=== PATIENT | male | born 1955 | race Caucasian/White ===

== ENCOUNTER 2017-02-09 13:12 | Emergency (ER) | payer OTHER ==
[~2017-02-09] VITALS: Wt 56.7 kg
--- NOTE | 2017-02-09 14:25 | RADRPT ---
PROCEDURE: US Scrotum. CLINICAL INDICATION: Pain TECHNIQUE: Multiple sonographic images of the scrotal region were obtained utilizing a linear arra y transducer with grayscale and color-flow and a Doppler imaging. The images were reviewed on a high -resolution PACS workstation. COMPARISON: No prior studies are available for comparison. FINDINGS: The right testicle is well visualized normal in size. There are dilated rete testis noted in the rig ht testicle. The right testicle measures 4.1 x 2.8 x 3.0 cm. There is normal color-flow. The right epididymis is enlarged measuring 2.6 x 1.6 cm. There are multiple cysts in the right epidi dymis, measuring up to 1.9 cm. There is a small right hydrocele. The left testicle is well visualized and has a normal echotexture. No focal areas abnormal echogenic ity are visualized. The left testicle measures 4.6 x 2.9 x 3.9 cm. There is normal color-flow. The l eft epididymis is visualized and is unremarkable in appearance. There is normal color-flow. The left epididymis measures 1.8 x 1.4 cm. There is a moderate left hydrocele. There is no evidence of varicocele. RPTAT: AA IMPRESSION: Enlarged right epididymis with multiple cystic structures measuring up to 1.9 cm. Small right hydroc lisandro. Dilated rete testis noted in the right testicle. Moderate left hydrocele. Normal Doppler flow is seen in the bilateral testicles and epididymis. .Masoud Ponce MD, MD Date Time Electronically viewed and signed by .Masoud Ponce MD, MD on 02/09/2017 14:24 .S/
[2017-02-09] MEDS ORDERED: HYDR-902 PO (15:15)
[2017-02-09] MEDS ORDERED: CIPR500T4 PO (15:15)
--- NOTE | 2017-02-09 15:18 | ERD ---
ER Documentation Chief Complaint Chief Complaint LEFT TESTICULAR PAIN X2 DAYS, MILD SWELLING PER PT HPI This is 61-year-old male here for right testicular pain for 3 days. He has some very mild swelling to the scrotum but no fever no dysuria no hematuria no back pain no trauma no penile discharge. Pain is constant dull ache in the right scrotum with no radiation. Says he has never had any epididymitis before any other testicular issues. ROS All systems reviewed and are negative except as per history of present illness. Medications Home Meds Active Scripts Hydrocodone/Acetaminophen ([place] 10-325 Tablet) 1 Each Tablet, 1 TAB PO Q6H Y for PAIN, #20 TAB Prov:LEKKOS,APOSTOLOS A. DO 02/09/17 Ciprofloxacin Hcl* (Ciprofloxacin Hcl*) 500 Mg Tablet, 500 MG PO BID for 21 Days , TAB Prov:LEKKOS,APOSTOLOS A. DO 02/09/17 Allergies Allergies: Coded Allergies: No Known Allergy (Unverified , 02/09/17) PMhx/Soc Medical and Surgical Hx: pt denies Medical Hx, pt denies Surgical Hx Hx Alcohol Use: No Hx Substance Use: No Hx Tobacco Use: No Smoking Status: Never smoker FmHx Family History: No coronary disease Physical Exam Vitals Vital Signs Date Time Temp Pulse Resp B/P Pulse Ox O2 Delivery O2 Flow Rate FiO2 02/09/17 13:16 97.5 72 18 179/83 98 Physical Exam C Const: , Right testicular epididymal tenderness with some mild erythema and swelling Head: Atraumatic, normocephalic Eyes: Normal Conjunctiva, PERRLA, EOMI, normal sclera, no nystagmus ENT: Normal External Ears, Nose and Mouth, moist mucus membranes. Neck: Full range of motion. No meningismus, no lymphadenopathy. Resp: Clear to auscultation bilaterally, no wheezing, rhonchi, rales Cardio: Regular rate and rhythm, no murmurs, S1 S2 present Abd: Soft, non tender x 4, non distended. Normal bowel sounds, no guarding or rebound, no pulsitile abdominal masses or bruits,Right testicular epididymal tenderness with some mild erythema and swelling, bilateral cremasteric intact Skin: No petechiae or rashes, no ecchymosis , no maculopapular rash Back: No midline or flank tenderness Ext: No cyanosis, or edema, FROM x 4, normal inspection, neurovascularly intact x 4 Neur: Awake and alert, STR 5/5 x 4, sensation intact x 4, no focal findings, cerebellum intact Psych: Normal Mood and Affect Procedures/MDM PROCEDURE: US Scrotum. CLINICAL INDICATION: Pain TECHNIQUE: Multiple sonographic images of the scrotal region were obtained utilizing a linear array transducer with grayscale and color-flow and a Doppler imaging. The images were reviewed on a high-resolution PACS workstation. COMPARISON: No prior studies are available for comparison. FINDINGS: The right testicle is well visualized normal in size. There are dilated rete testis noted in the right testicle. The right testicle measures 4.1 x 2.8 x 3.0 cm. There is normal color-flow. The right epididymis is enlarged measuring 2.6 x 1.6 cm. There are multiple cysts in the right epididymis, measuring up to 1.9 cm. There is a small right hydrocele. The left testicle is well visualized and has a normal echotexture. No focal areas abnormal echogenicity are visualized. The left testicle measures 4.6 x 2.9 x 3.9 cm. There is normal color-flow. The left epididymis is visualized and is unremarkable in appearance. There is normal color-flow. The left epididymis measures 1.8 x 1.4 cm. There is a moderate left hydrocele. There is no evidence of varicocele. RPTAT: AA IMPRESSION: Enlarged right epididymis with multiple cystic structures measuring up to 1.9 cm. Small right hydrocele. Dilated rete testis noted in the right testicle. Moderate left hydrocele. Normal Doppler flow is seen in the bilateral testicles and epididymis. .Masoud Ponce MD, MD Date Time Electronically viewed and signed by .Masoud Ponce MD, MD on 02/09/2017 14: 24 .S/ CC: MAAME WIN DO We will cover with Cipro 21 days Departure Diagnosis: Primary Impression: Epididymitis Condition: Stable Patient Instructions: Epididymitis Referrals: WALT MOORE MD, APOSTOLOS A. DO Feb 09, 2017 15:18
== END 2017-02-09 17:24 | disposition home or self-care (01) ==
LOC: E/R 13:12
DX: N45.1 Epididymitis (principal)
CPT/HCPCS: 76870

== ENCOUNTER 2018-06-14 12:35 | Emergency (ER) | payer OTHER ==
[~2018-06-14] VITALS: Ht 165.1 cm; Wt 54.5 kg
[~2018-06-14 12:35] MED LIST: CIPR500T4 PO; HYDR-3980 PO
[2018-06-14 12:43] VITALS: Ht 165.1 cm; Wt 54.5 kg
[2018-06-14] MEDS ORDERED: KETOROLAC 15 MG INJ IM STA (15:35)
[2018-06-14] MEDS ORDERED: ACET-141 PO (16:27)
[2018-06-14] MEDS ORDERED: IBUP-1561 PO (16:27)
[2018-06-14] MEDS ORDERED: METH750T93 PO (16:27)
--- NOTE | 2018-06-14 16:34 | ERD ---
ER Documentation Chief Complaint Chief Complaint c//o low back pain radiating to right leg x3 days. Denies injury HPI 63-year-old male presents for low back pain with radiation to the right leg times 3 days. He states that the pain is 6 out of 10. Describes the pain as sharp and radiating down to the right leg. Took 200 mg of Motrin at home without relief. Denies any injury. No chest pain or shortness of breath. Denies any recent back procedures. Denies history of cancer. Denies recent infection. ROS All systems reviewed and are negative except as per history of present illness. Medications Home Meds Active Scripts Methocarbamol* (Robaxin*) 750 Mg Tablet, 750 MG PO TID PRN for MUSCLE SPASMS, #30 TAB Prov:NAIMA FRANK DO 06/14/18 Ibuprofen* (Motrin*) 400 Mg Tab, 400 MG PO Q6H PRN for PAIN AND OR ELEVATED TEMP, #30 TAB Prov:NAIMA FRANK DO 06/14/18 Acetaminophen* (Acetaminophen*) 500 MG Extra Strength Tablet, 500 MG PO Q4H PRN for PAIN AND OR ELEVATED TEMP, #30 TAB Prov:NAIMA FRANK DO 06/14/18 Hydrocodone/Acetaminophen ([place] 10-325 Tablet) 1 Each Tablet, 1 TAB PO Q6H PRN for PAIN, #20 TAB Prov:MAAME WIN DO 02/09/17 Ciprofloxacin Hcl* (Ciprofloxacin Hcl*) 500 Mg Tablet, 500 MG PO BID for 21 Days, TAB Prov:MAAME WIN DO 02/09/17 Allergies Allergies: Coded Allergies: No Known Allergy (Unverified , 02/09/17) PMhx/Soc Medical and Surgical Hx: pt denies Medical Hx, pt denies Surgical Hx Hx Alcohol Use: No Hx Substance Use: No Hx Tobacco Use: No Smoking Status: Never smoker Physical Exam Vitals Vital Signs Date Temp Pulse Resp B/P (MAP) Pulse Ox O2 O2 Flow FiO2 Time Delivery Rate 06/14/18 97.2 72 20 154/89 96 12:43 (110) Physical Exam Const: No acute distress Neck: Full range of motion. No meningismus. no midline tenderness Resp: Clear to auscultation bilaterally Cardio: Regular rate and rhythm, no murmurs, bilateral radial and dorsalis pedis pulses intact and equal Abd: Soft, non tender, non distended. Normal bowel sounds, no abdominal bruit noted Skin: No petechiae or rashes Back: no point tenderness Ext: No cyanosis, or edema, 5/5 muscle strength bilateral upper and lower extremities Neur: Awake and alert, bilateral upper and lower extremity sensation intact Psych: Normal Mood and Affect Results 24 hrs Current Medications Medications Dose Sig/Edin Start Time Status Last (Trade) Ordered Route PRN Stop Time Admin Dose Reason Admin Ketorolac 15 mg ONCE STAT 06/14/18 DC 06/14/18 Tromethamine IM 15:35 06/14/18 15:41 (Toradol) 15:36 Procedures/MDM Medical Decision Making: Differential diagnosis includes but not limited to muscle strain, ligamentous sprain, epidural abscess, osteomyelitis, osteoarthritis, herniated disc, compression fracture, aortic aneurysm, kidney stone, pyelonephritis, pancreatitis. Patient appeared well on physical examination. Nontoxic appearing. Patient appeared well on physical examination. Nontoxic appearing. No recent back procedure, therefore low suspicion for epidural abscess No recent infection, therefore low suspicion for osteomyelitis No trauma, therefore low suspicion for fracture No chest pain, abdominal pain and no pulse deficits noted, therefore low suspicion for aortic dissection or pancreatitis No flank pain or fever to suggest pyelonephritis or kidney stone Imaging: Lumbar spine x-ray shows mild degenerative disc disease mostly at L5-S1 ED course: Patient was given Toradol. Symptoms improved with treatment. Prescription(s): Patient given prescription for supportive medication(s). Advised to follow with primary care physician for possible referral for physical therapy. Patient advised to follow up with PCP in 1-2 days. Patient advised to return to ED for new or worsening symptoms. Patient stable on discharge from the ED. Disclaimer: Inadvertent spelling and grammatical errors are likely due to EHR/dictation software use and do not reflect on the overall quality of patient care. Also, please note that the electronic time recorded on this note does not necessarily reflect the actual time of the patient encounter. Departure Diagnosis: Primary Impression: Back pain Back pain location: low back pain Chronicity: acute Back pain laterality: right Sciatica presence: with sciatica Sciatica laterality: sciatica of right side Qualified Codes: M54.41 - Lumbago with sciatica, right side Condition: Fair Patient Instructions: Back Pain (Acute Or Chronic) Additional Instructions: Call your primary care doctor TOMORROW for an appointment during the next 1-2 days.See the doctor sooner or return here if your condition worsens before your appointment time. NAIMA FRANK DO Jun 14, 2018 16:34
[2018-06-14 17:00] VITALS: BP 142/74; PULSE 60; RESP 16
== END 2018-06-14 17:05 | disposition home or self-care (01) ==
LOC: FTE 12:35
DX: M54.41 Lumbago with sciatica, right side (principal)
CPT/HCPCS: 72100; 96372; J1885; Z7502

== ENCOUNTER 2018-10-21 09:18 | Emergency (ER) | payer OTHER ==
[~2018-10-21] VITALS: Ht 162.6 cm; Wt 54.0 kg
[~2018-10-21 09:18] MED LIST changes: +ACET-141 PO; +ALBU18HF INHALATION; +HYDR25TA6 PO; +IBUP-1561 PO; +LOSA50TA14 PO; +METH750T93 PO
[2018-10-21 09:21] VITALS: Ht 162.6 cm; Wt 54.0 kg
[2018-10-21] MEDS ORDERED: hydrALAzine 20 MG INJ IV PRN (11:00)
--- NOTE | 2018-10-21 11:41 | CONS ---
DATE OF ADMISSION: 10/21/2018 DATE OF CONSULTATION: 10/21/2018 TYPE OF CONSULTATION: Cardiology. REASON FOR CONSULTATION: Shortness of breath, hypertension, congestive heart failure, rule out acute coronary syndrome. REQUESTING PHYSICIAN: Yoseph Whyte MD, from the Emergency Department. HISTORY OF PRESENT ILLNESS: Mr. Watkins is a very pleasant 63-year-old male with history of COPD, who presented with 2 to 3 days of dyspnea on exertion, nonproductive cough and subjective fever to 1 00.5, 2 to 3 days prior. The patient denied associated chest pain, dizziness, palpitations. The willy van presented to the Emergency Department after blood pressure being controlled all night, temperatu re 97.8, blood pressure 178/78, pulse 64, respiratory rate 18, satting 99%. The patient's labs showe d white blood cell count 8.1, hemoglobin 14.5, platelet count of 262. Sodium 142, potassium 4.0, cre atinine 0.56, BUN 8, troponin negative. BNP of 426. The patient underwent a chest x-ray revealing c alcified thoracic aortic arch and chronic lung changes. The patient's electrocardiogram was sinus rh ythm, rate of 60, normal axis, normal intervals, PA-C, lateral T-wave inversion. The patient at this time remains in the Emergency Department just arriving. PAST MEDICAL HISTORY: As above in HPI. MEDICATIONS PRIOR TO ADMIT: 1. Ciprofloxacin 500 mg p.o. b.i.d. 2. Albuterol. 3. Methocarbamol. 4. Tylenol. 5. Shell. 6. Ibuprofen. 7. Hydrochlorothiazide. ALLERGIES: NO KNOWN DRUG ALLERGIES. SOCIAL HISTORY: Positive tobacco, half pack per day. Social ETOH. No illicit drug use. FAMILY HISTORY: No sudden cardiac or early CAD. REVIEW OF SYSTEMS: As above in HPI. CONSTITUTIONAL: Positive fevers, chills. PULMONARY: Positive shortness of breath. CARDIOVASCULAR: No current chest pain. GASTROINTESTINAL: No vomiting. GENITOURINARY: No hematuria. MUSCULOSKELETAL: Degenerative joint disease. PSYCHIATRIC: The patient has depression. NEUROLOGIC: No documented history of CVA. ENDOCRINE: No documented history of diabetes mellitus. PHYSICAL EXAMINATION: VITAL SIGNS: Temperature 97.8, blood pressure 178/78, pulse 64, satting 99%. GENERAL: The patient is alert, awake, complaining of shortness of breath. NECK: JVP approximately 9 cm of water. CHEST: Decreased breath sounds at bases bilaterally. HEART: Regular rate and rhythm. Normal S1, increased S2, I/ systolic murmur. Nondisplaced PMI. ABDOMEN: Positive bowel sounds, soft. EXTREMITIES: No significant pitting edema, 1+ pulses, posterior tibial. LABORATORIES: As above in HPI. No further labs for my review at this time. IMAGING STUDIES: As above in HPI. No further imaging studies for my review at this time. ECG: As above in HPI. No further electrocardiograms for my review at this time. IMPRESSION: 1. Hypertension, uncontrolled. 2. Shortness of breath, assess congestive heart failure, rule out acute coronary syndrome. 3. Cough, nonproductive. Assess for upper respiratory infection. 4. Chronic obstructive pulmonary disease. 5. Tobacco dependence. 6. Increased BNP, assess for congestive heart failure. RECOMMENDATIONS: 1. At this time, would admit patient to telemetry monitoring to follow rhythm and rate control close ly. 2. Would start patient on antihypertensives to improve overall systolic blood pressure control. I w ill start this time with ARB. 3. Complete the patient's rule out for myocardial infarction should the patient's shortness breath i s not due to an acute coronary syndrome, acute markers such as an acute myocardial infarction. 4. Check a 2D echo to further assess patient's ejection fraction, wall motion, rule out any major va lve abnormalities. 5. We will check a fasting lipid panel for general risk stratification and initiate lipid-lowering m edication as necessary. 6. We will initiate patient on bronchodilators and consider antibiotic therapy. 7. We will follow up all culture data. 8. Will consider stress testing this patient if rules out for myocardial infarction. Thank you for allowing me to take part in the care of this patient. I will continue to follow along very closely with you with further recommendations to be made as the patient progresses through his [facility] clinical course. Dictated By: ALEENA WISEMAN/JOSEILNE Conf#: [id number] DID#: [id number] CC: YOSEPH WHYTE MD;*EndCC*
--- NOTE | 2018-10-21 11:49 | ERD ---
ER Documentation Chief Complaint Chief Complaint sob x 1 week , bp high @ home HPI 63-year-old gentleman history of smoking who presents to the emergency room with elevated blood pressure and shortness of breath on and off for 1 week. The patient describes intermittent episodes of shortness of breath. He denies any pressure or diaphoresis or exertional symptoms, no PND orthopnea or lower extremity swelling. This shortness of breath episodes last several minutes and are completely resolved without significant intervention. He was noted to have elevated blood pressure. He started taking unknown blood pressure medication fr om unknown individual. ROS All systems reviewed and are negative except as per history of present illness. Medications Home Meds Active Scripts Losartan Potassium* (Losartan Potassium*) 50 Mg Tablet, 50 MG PO DAILY for 30 Days, TAB Prov:ELICEO HUGHES MD 10/21/18 Albuterol Sulfate* (Ventolin HFA*) 18 Gm Hfa.aer.ad, 2 PUFF INHALATION Q4H, #1 INHALER Prov:ELICEO HUGHES MD 10/21/18 Hydrochlorothiazide* (Hydrochlorothiazide*) 25 Mg Tab, 25 MG PO DAILY, #30 TAB Prov:ELICEO HUGHES MD 10/21/18 Methocarbamol* (Robaxin*) 750 Mg Tablet, 750 MG PO TID PRN for MUSCLE SPASMS, #30 TAB Prov:NAIMA FRANK DO 06/14/18 Ibuprofen* (Motrin*) 400 Mg Tab, 400 MG PO Q6H PRN for PAIN AND OR ELEVATED TEMP, #30 TAB Prov:NAIMA FRANK DO 06/14/18 Acetaminophen* (Acetaminophen*) 500 MG Extra Strength Tablet, 500 MG PO Q4H PRN for PAIN AND OR ELEVATED TEMP, #30 TAB Prov:NAIMA FRANK DO 06/14/18 Hydrocodone/Acetaminophen ([place] 10-325 Tablet) 1 Each Tablet, 1 TAB PO Q6H PRN for PAIN, #20 TAB Prov:MAAME WIN DO 02/09/17 Ciprofloxacin Hcl* (Ciprofloxacin Hcl*) 500 Mg Tablet, 500 MG PO BID for 21 Days, TAB Prov:MAAME WIN DO 02/09/17 Allergies Allergies: Coded Allergies: No Known Allergy (Unverified , 02/09/17) PMhx/Soc Medical and Surgical Hx: pt denies Medical Hx, pt denies Surgical Hx Hx Alcohol Use: Yes Hx Substance Use: No Hx Tobacco Use: Yes Smoking Status: Current every day smoker FmHx Family History: No diabetes Physical Exam Vitals Vital Signs Date Temp Pulse Resp B/P (MAP) Pulse Ox O2 O2 Flow FiO2 Time Delivery Rate 10/21/18 Nasal 2 10:00 Cannula 10/21/18 97.8 64 18 178/78 99 09:21 (111) Physical Exam General: Well developed, well nourished, no acute distress Head: Normocephalic, atraumatic. Eyes: Pupils equally reactive, EOM intact ENT: Moist mucous membranes Neck: Supple, no lymphadenopathy Respiratory: Lungs clear bilaterally, no distress Cardiovascular: RRR, no murmurs, rubs, or gallops Abdominal: Soft, non-tender, non-distended, no peritoneal signs : Deferred MSK: No edema, no unilateral swelling, 5/5 strength Neurologic: Alert and oriented, moving all extremities, normal speech, no focal weakness, no cerebellar signs Skin: No rash Psych: Normal mood Result Diagram: 10/21/18 0950 10/21/18 0950 Results 24 hrs Laboratory Tests Test 10/21/18 09:50 White Blood Count 8.1 10^3/ul Red Blood Count 4.83 10^6/ul Hemoglobin 14.5 g/dl Hematocrit 44.2 % Mean Corpuscular Volume 91.5 fl Mean Corpuscular Hemoglobin 30.0 pg Mean Corpuscular Hemoglobin Concent 32.8 g/dl Red Cell Distribution Width 12.1 % Platelet Count 262 10^3/UL Mean Platelet Volume 9.9 fl Immature Granulocytes % 0.400 % Neutrophils % 77.9 % Lymphocytes % 12.4 % Monocytes % 8.1 % Eosinophils % 1.1 % Basophils % 0.1 % Nucleated Red Blood Cells % 0.0 /100WBC Immature Granulocytes # 0.030 10^3/ul Neutrophils # 6.3 10^3/ul Lymphocytes # 1.0 10^3/ul Monocytes # 0.7 10^3/ul Eosinophils # 0.1 10^3/ul Basophils # 0.0 10^3/ul Nucleated Red Blood Cells # 0.0 10^3/ul Sodium Level 142 mmol/L Potassium Level 4.0 mmol/L Chloride Level 102 mmol/L Carbon Dioxide Level 35 mmol/L Anion Gap 5 Blood Urea Nitrogen 8 mg/dl Creatinine 0.56 mg/dl Est Glomerular Filtrat Rate mL/min > 60 mL/min Glucose Level 83 mg/dl Calcium Level 10.1 mg/dl Troponin I < 0.012 ng/ml B-Type Natriuretic Peptide 426 PG/ML Current Medications Medications Dose Sig/Edin Start Time Status Last (Trade) Ordered Route PRN Stop Time Admin Dose Reason Admin Losartan 25 mg BID PO 10/21/18 Potassium 21:00 (Cozaar) Hydralazine 10 mg Q4H PRN 10/21/18 HCl IV SBP>170 11:00 (Apresoline) Procedures/MDM EKG, MONITORS, & DIAGNOSTIC IMAGING: EKG: I reviewed and interpreted a 12-lead EKG. Rhythm: Normal sinus rhythm ST Changes: No contiguous ST segment elevations T waves: No contiguous T wave inversions Impression: No evidence of acute cardiac ischemia Chest x-ray: I reviewed and interpreted a 1 view of the chest Mediastinum: No enlargement Cardiac silhouette: No cardiomegaly Airspace: Hyperinflation. Bones: No evidence of fracture LAB INTERPRETATION: I reviewed the laboratory testing and it shows negative troponin, indeterminate BNP MEDICAL DECISION MAKING: The patient has transient episodes of shortness of breath that are nonexertional and nonspecific likely secondary to his smoking. CHF needs to be considered. Low concern for acute coronary syndrome. Patient's blood pressure is elevated likely prolonged. He is taking someone else's blood pressure medication not prescribed by physician. Patient is in no distress and has no active symptoms currently. ER COURSE: * The patient's presentation is consistent with asymptomatic hypertensive urgency, shortness of breath is possibly secondary to underlying smoking, COPD exacerbation. Less likely CHF. BNP is indeterminate. No evidence of pulmonary edema on chest x-ray. Patient is resting comfortably and asymptomatic. * Store Sales Consultant Dr. Fernandez to the bedside. He has divided the patient and agrees with discharge. He would like to start losartan, prescription provided. He will follow-up with the patient on an outpatient basis. CONSULTATION: Cardiology as documented above DISPOSITION PLAN: The patient does not have an identifiable emergent medical condition that warrants inpatient hospitalization at this time. The patient is deemed safe for discharge with outpatient follow-up. We discussed follow up with the patient's primary care doctor within 24 to 48 hours as needed. We also discussed return to the emergency room for worsening symptoms or worsening condition. Outpatient referral: Cardiology Discharge Medications: Losartan, Ventolin Departure Diagnosis: Primary Impression: Essential hypertension Additional Impression: Shortness of breath Condition: Stable Patient Instructions: Hypertension, New (Begin Treatment) Referrals: ALEENA FERNANDEZ [facility] YOU HAVE RECEIVED A MEDICAL SCREENING EXAM AND THE RESULTS INDICATE THAT YOU DO NOT HAVE A CONDITION THAT REQUIRES URGENT TREATMENT IN THE EMERGENCY DEPARTMENT. FURTHER EVALUATION AND TREATMENT OF YOUR CONDITION CAN WAIT UNTIL YOU ARE SEEN IN YOUR DOCTORS OFFICE WITHIN THE NEXT 1-2 DAYS. IT IS YOUR RESPONSIBILITY TO MAKE AN APPOINTMENT FOR FOLOW-UP CARE. IF YOU HAVE A PRIMARY DOCTOR --you should call your primary doctor and schedule an appointment IF YOU DO NOT HAVE A PRIMARY DOCTOR YOU CAN CALL OUR PHYSICIAN REFERRAL HOTLINE AT IF YOU CAN NOT AFFORD TO SEE A PHYSICIAN YOU CAN CHOSE FROM THE FOLLOWING [facility] [address] [facility]. [facility] [address] [facility] [address] [facility] [address] [facility] [address] [facility]. [facility] [address] [facility]. [facility] YOU HAVE RECEIVED A MEDICAL SCREENING EXAM AND THE RESULTS INDICATE THAT YOU DO NOT HAVE A CONDITION THAT REQUIRES URGENT TREATMENT IN THE EMERGENCY DEPARTMENT. FURTHER EVALUATION AND TREATMENT OF YOUR CONDITION CAN WAIT UNTIL YOU ARE SEEN IN YOUR DOCTORS OFFICE WITHIN THE NEXT 1-2 DAYS. IT IS YOUR RESPONSIBILITY TO MAKE AN APPOINTMENT FOR FOLOW-UP CARE. IF YOU HAVE A PRIMARY DOCTOR --you should call your primary doctor and schedule and appointment IF YOU DO NOT HAVE A PRIMARY DOCTOR YOU CAN CALL OUR PHYSICIAN REFERRAL HOTLINE AT . IF YOU CAN NOT AFFORD TO SEE A PHYSICIAN YOU CAN CHOSE FROM THE FOLLOWING [facility] INSTITUTIONS: [facility] [address] [place] [address] [facility] [address] [place] [address] [address] Additional Instructions: Call your primary care doctor TOMORROW for an appointment during the next 1 WEEK.Tell the administrative secretary that you were referred from this facility.See the doctor sooner or return here if your condition worsens before your appointment time. ELICEO HUGHES MD Oct 21, 2018 11:49
[2018-10-21 12:12] VITALS: BP 157/86; PULSE 75; RESP 18
[2018-10-21] MEDS ORDERED: LOSARTAN 25 MG TAB PO SCH (21:00)
== END 2018-10-21 12:14 | disposition home or self-care (01) ==
LOC: E/R 09:18
DX: I10 Essential (primary) hypertension (principal); F17.210 Nicotine dependence, cigarettes, uncomplicated
CPT/HCPCS: 36415; 71045; 80048; 83880; 84484; 85025; 93005; Z7502